=== PATIENT | male | born 1945 | race African-American/Black ===

== ENCOUNTER → 2016-08-04 | Day surgery (SDC) | payer MEDICARE ==
[~2016-08-04] VITALS: Ht 167.6 cm; Wt 86.4 kg
[~2016-08-04] MED LIST: AMIT25TA PO; AMLO10TA2 PO; BUPIVAC MPF-EPI 0.5%-1:200000 30 ML VIAL. ONE; CEFAZOLIN 2GM PREMIX 50 ML IV PRN; CYCL10TA2 PO; DESFLURANE 31 TO 60 MINUTES IH ONE; DEXAMETHASONE SOD PHOS 20 MG/5 ML VIAL. ONE; EPHEDRINE PF IN SALINE 50 MG/5 ML DISP.SYRIN. IV ONE; EPINEPHRINE 1 MG/ML VIAL. ONE; FENTANYL PF 100 MCG/2 ML VIAL. IV PRN; FENTANYL PF 100 MCG/2 ML VIAL. ONE; GLYCOPYRROLATE 1 MG/5 ML VIAL. ONE; HYDR-963 PO; HYDR100T24 PO; HYDROMORPHONE 2 MG/ML VIAL. IV PRN; IV RINGERS,LACTATED 1000ML 1,000 ML IV SCH; LIDOCAINE 1% 1 ML SYRINGE. ID PRN; LIDOCAINE 2% 100 MG/5 ML DISP.SYRIN. ONE; MELO-150 PO; METO50TA2 PO; MORPHINE SULFATE 2 MG/ML DISP.SYRIN. IV PRN; OMEP20TA PO; ONDA4TAB7 PO; ONDANSETRON PF 4 MG/2 ML VIAL. IV PRN; ONDANSETRON PF 4 MG/2 ML VIAL. ONE; OXYC-323 PO; OXYCODONE/APAP 5/325 TABLET. PO ONE; PROCHLORPERAZINE 10 MG/2 ML VIAL. IV PRN; PROPOFOL 20 ML IV ONE; ROCURONIUM 50 MG/5 ML VIAL. ONE; SILD100T PO; SUCCINYLCHOLINE 200 MG/10 ML VIAL. ONE; TAMS0.4C97 PO; TELM40TA PO; TIOT18CA IH; VENTOLIN HFA18 GM INH
--- NOTE | 2016-08-04 13:00 | PDOC ---
BRIEF OPERATIVE NOTE Pre-Op Diagnosis RIH Lap RIH repair with mesh cullen morgan ebl 10 ivf 1100 alyson well to rr stable. #[id number] DANI SOARES MD Aug 04, 2016 13:00
[2016-08-04 13:40] VITALS: BP 129/83
--- NOTE | 2016-08-04 20:13 | OP ---
DATE OF SURGERY: 08/04/2016 PREOPERATIVE DIAGNOSIS: Right inguinal hernia. POSTOPERATIVE DIAGNOSIS: Right inguinal hernia. PROCEDURE: Laparoscopic right inguinal hernia repair with mesh. SURGEON: Dani Soares MD ANESTHESIA: General. ESTIMATED BLOOD LOSS: 10 mL. IV FLUIDS: 1100 mL. INDICATIONS: The patient is a 70-year-old male who presents with a symptomatic right inguinal hernia that he would like to have repaired. FINDINGS: Indirect right inguinal hernia. DESCRIPTION OF PROCEDURE: After informed consent was obtained, the patient was taken to the operating room and placed in supine position. After adequate induction of general anesthesia, he was prepped and draped in usual sterile fashion. An umbilical skin incision was made with a scalpel, subcutaneous tissues with a hemostat. [facility] was used to grab the fascia and lift it anteriorly. Veress was used to gain access to the peritoneal cavity. Low opening pressures confirmed intraperitoneal placement of Veress. Pneumoperitoneum to 15 mmHg was established followed by placement of an 11 mm port. A 5 mm 30 degree lens was inserted, which revealed good port placement. No evidence of entry trauma. He was placed head down. Two additional ports were placed under direct vision, both were 5 mm ports placed on either side of the umbilicus under direct vision. The sites were injected with local anesthetic before making the incision. Also a nerve block was performed 1 cm inferior, 1 cm medial to the ASIS at the level of the external oblique, and 5 mL of the local was instilled into the space. The peritoneum was then scored from just above the ASIS on the right across to the midline with scissors on cautery. The preperitoneal space was then developed with DeBakey and the hernia sac was reduced. At the completion of dissection, the indirect, direct, and femoral spaces had all been exposed. The peritoneal flap had been skeletonized more proximal on the traumatic cord structures to ensure that the mesh could be placed without rolling of the mesh when the flap was reapproximated. A large piece of 3DMax right-sided mesh was brought onto the field and placed in the preperitoneal space. They covered the direct, indirect, and femoral spaces. It was sutured just above the pubic tubercle and along the rectus muscle medially, along the anterior abdominal wall anteriorly, and then carrying not laterally. This was accomplished with a secure strap. No tacks were placed deep to the iliopubic tract, lateral to the indirect ring, and no tacks were placed along Luis's ligament. At this point, the mesh sat nicely against the abdominal wall and all potential hernia spaces were covered. The mesh did not shift or roll upon reapproximation of the peritoneal flap. The peritoneal flap was then reapproximated with a secure strap. At the completion of reapproximation, there were no gaps or defects in the peritoneum. The mesh was completely covered and the indirect hernia sac was also tacked to the anterior abdominal wall, so would not serve as a lead point for recurrence. At this point, the fascial closure device was used to close the fascia at the umbilical incision using 0 Vicryl suture x 2. Ports removed under direct vision, it was hemostatic. Pneumoperitoneum was desufflated. Skin incisions were closed with 4-0 Monocryl in subcuticular fashion. Sterile dressings were placed. He tolerated the procedure well. There were no apparent complications. He was then transferred in stable condition to the recovery room. DANI SOARES MD DR: MORRIS/ev JOB#: [id number] / [id number] SADI Hadley TERRY MD
== END | disposition home or self-care (01) ==
LOC: SURG 08:50
PROVIDERS: ATTEND Surgery
DX: K40.90 Unilateral inguinal hernia, without obstruction or gangrene, not specified as recurrent (principal); I10 Essential (primary) hypertension; J44.9 Chronic obstructive pulmonary disease, unspecified; E66.9 Obesity, unspecified; K21.9 Gastro-esophageal reflux disease without esophagitis; F17.200 Nicotine dependence, unspecified, uncomplicated; Z86.73 Personal history of transient ischemic attack (TIA), and cerebral infarction without residual deficits; Z96.643 Presence of artificial hip joint, bilateral
CPT/HCPCS: 49650; C1781; J0171; J0330; J0690; J1100; J2405; J2704; J3010; J3490

== ENCOUNTER → 2017-08-15 | Outpatient (CLI) | payer BC | END | disposition home or self-care (01) | LOC: KCIC 11:04 | DX: J44.9 Chronic obstructive pulmonary disease, unspecified (principal) | CPT/HCPCS: 71046 ==

== ENCOUNTER → 2019-07-25 | Outpatient (CLI) | payer BC ==
[2016-08-04 13:40] VITALS: BP 129/83
[~2019-07-25] MED LIST changes: -AMLO10TA2 PO; +AMLO10TA8 PO; -BUPIVAC MPF-EPI 0.5%-1:200000 30 ML VIAL. ONE; -CEFAZOLIN 2GM PREMIX 50 ML IV PRN; -DESFLURANE 31 TO 60 MINUTES IH ONE; -DEXAMETHASONE SOD PHOS 20 MG/5 ML VIAL. ONE; -EPHEDRINE PF IN SALINE 50 MG/5 ML DISP.SYRIN. IV ONE; -EPINEPHRINE 1 MG/ML VIAL. ONE; -FENTANYL PF 100 MCG/2 ML VIAL. IV PRN; -FENTANYL PF 100 MCG/2 ML VIAL. ONE; -GLYCOPYRROLATE 1 MG/5 ML VIAL. ONE; +HYDR-3135 PO; -HYDR-963 PO; -HYDROMORPHONE 2 MG/ML VIAL. IV PRN; -IV RINGERS,LACTATED 1000ML 1,000 ML IV SCH; -LIDOCAINE 1% 1 ML SYRINGE. ID PRN; -LIDOCAINE 2% 100 MG/5 ML DISP.SYRIN. ONE; -MELO-150 PO; +MELO15TA23 PO; -METO50TA2 PO; +METO50TA6 PO; -MORPHINE SULFATE 2 MG/ML DISP.SYRIN. IV PRN; -OMEP20TA PO; +OMEP20TA8 PO; -ONDANSETRON PF 4 MG/2 ML VIAL. IV PRN; -ONDANSETRON PF 4 MG/2 ML VIAL. ONE; -OXYC-323 PO; +OXYC1TAB15 PO; -OXYCODONE/APAP 5/325 TABLET. PO ONE; -PROCHLORPERAZINE 10 MG/2 ML VIAL. IV PRN; -PROPOFOL 20 ML IV ONE; -ROCURONIUM 50 MG/5 ML VIAL. ONE; -SUCCINYLCHOLINE 200 MG/10 ML VIAL. ONE
--- NOTE | 2019-07-25 08:49 | KCIC ---
LUMBAR SPINE MIN 4V History: Low back pain, bilateral hip pain, leg weakness Comparison: None. Findings: 5 views of the lumbar spine are submitted. There is zcuu-pb-[id number] levoscoliosis centered near L1. There is mild left lateral subluxation L1 relative to L2 and L2 relative to L3. There is multilevel advanced degenerative disc disease throughout the lumbar spine, also spondylosis throughout the lumbar spine. There is very mild grade 1 anterior spondylolisthesis at L4-5, very minimal posterior subluxation of L2 relative to L3. Lumbar vertebral body stature is overall maintained. There is multilevel lumbar facet degenerative change. There are bilateral hip arthroplasties. There is atherosclerotic calcification of the abdominal aorta. There is more prominent retained stool of the right colon. Impression: 1. There is advanced degenerative disease throughout the lumbar spine, also spondylosis. There is multilevel lumbar facet degenerative change. There is lumbar levoscoliosis, also mild abnormal alignment as stated. Electronically signed by: Roscoe Cherry MD (07/25/2019 8:46 AM) [id number]
== END | disposition home or self-care (01) ==
LOC: KCIC 08:10
PROVIDERS: ATTEND Family Medicine
DX: M47.816 Spondylosis without myelopathy or radiculopathy, lumbar region (principal); M41.86 Other forms of scoliosis, lumbar region; M51.36 Other intervertebral disc degeneration, lumbar region; M43.16 Spondylolisthesis, lumbar region; M43.5X6 Other recurrent vertebral dislocation, lumbar region; I70.0 Atherosclerosis of aorta
CPT/HCPCS: 72110

== ENCOUNTER → 2019-08-14 | Outpatient (CLI) | payer BC ==
[2016-08-04 13:40] VITALS: BP 129/83
--- NOTE | 2019-08-14 12:10 | KCIC ---
MRI Lumbar Spine without contrast History: Low back pain, bilateral hip pain, worsening pain, bilateral leg weakness Technique: Multiplanar, multi sequential noncontrast MR imaging was performed of the lumbar spine. Comparison: None Findings: Lumbar vertebral body stature is mostly maintained other than multilevel small Schmorl's nodes. There is advanced degenerative disc disease L1-L2 through L5-S1, variable multilevel degenerative endplate change throughout the lumbar spine. There is also variable endplate edema throughout lumbar spine greatest at L3-4, no fluid in signal intensity in the intervertebral disc spaces. Conus terminates near T12-L1. There is negligible anterior spondylolisthesis at L4-5. There is mild levoscoliosis centered near L1-2. There is T2 hyperintense lesion of the visualized right kidney on the order of 3.4 cm, some other smaller foci of the bilateral kidneys. L1-L2: There is broad posterior disc osteophyte complex and shallow bulge. There is prominence of posterior epidural fat centrally, mild buckling of the ligamentum flavum, and qteu-qf-npagianq facet degenerative change. There is overall mild narrowing of the far right lateral recess, mild attenuation of the thecal sac centrally in part from posterior epidural lipomatosis. Left neural foramen is adequate. There is fairly severe narrowing of the right neural foramen by facet and disc osteophyte complex with degree of contact of the exiting right L1 nerve root. L2-L3: There is broad posterior disc osteophyte complex and prominence of posterior epidural fat centrally. There is jlay-yf-stnbqauv buckling of the ligamentum flavum greater on the right, also moderate facet hypertrophic change greater on the right. There is overall moderate spinal stenosis, including narrowing of the lateral recesses bilaterally left greater than right. There is degree of attenuation of the thecal sac centrally from posterior epidural lipomatosis. There is moderate narrowing of the left neural foramen by disc osteophyte complex and facet, moderate to severe narrowing on the right. L3-L4: There is broad posterior disc osteophyte complex and minimal bulge. There is prominence of posterior epidural fat centrally. There is mild to moderate buckling of the ligamentum flavum and facet degenerative change somewhat greater on the left. Combination of findings results in overall moderate spinal stenosis with limited preserved subarachnoid space, attenuation of the thecal sac more centrally from posterior epidural lipomatosis. There is moderate to severe neural foramina compromise bilaterally somewhat greater on the left, narrowing from facets and disc osteophyte complex with degree of contact of the exiting L3 nerve roots bilaterally. L4-L5: There is fairly severe left facet degenerative change, to lesser degree on the right. There is moderate buckling of the ligamentum flavum. There is minimal disc osteophyte complex and bulge. There is moderate narrowing of the far left lateral recess. There is also moderate attenuation of the thecal sac more centrally primarily from posterior epidural lipomatosis, also attenuation of the thecal sac from epidural lipomatosis such as at the mid aspect of L4. There is severe narrowing of the left neural foramen from facet and disc osteophyte complex with impingement of the exiting left L4 nerve root, disc osteophyte complex also contacting the proximal extraforaminal left L4 nerve root. There is ujgw-vc-fcwddojr overall narrowing the right neural foramen with disc osteophyte complex near undersurface exiting right L4 nerve root. L5-S1: There is prominence of posterior epidural fat greatest centrally. There is mild buckling of the ligamentum flavum and mild to moderate facet degenerative change. There is disc osteophyte complex and bulge/broad protrusion with contact of the descending S1 nerve roots bilaterally. At the intervertebral disc space level, there is some preserved subarachnoid space. There is moderate, left greater than right lateral recess stenosis. There is fzfg-dc-hpbdxvzw narrowing of the thecal sac more centrally in part from posterior epidural lipomatosis. There is moderate to severe narrowing of the left neural foramen in part from facet and disc osteophyte complex, contact of the exiting left L5 nerve root by the disc osteophyte complex extending to the extraforaminal region. There is moderate to severe narrowing of the right neural foramen with contact of the undersurface exiting right L5 nerve root by disc osteophyte complex extending to the extraforaminal region. At the level of the mid aspect of L5, there is circumferential epidural lipomatosis resulting in near complete effacement of subarachnoid space. Impression: 1. There is multilevel advanced degenerative disc disease throughout lumbar spine, also multilevel spondylosis throughout lumbar spine. There is multilevel degenerative endplate change and endplate edema. 2. There is multilevel spinal stenosis as described throughout the lumbar spine, degree of attenuation of the thecal sac in part from epidural lipomatosis. There is overall moderate spinal stenosis at L2-3, L3-4, L4-5 and also moderate lateral recess stenosis at L5-S1. There is mild attenuation of the thecal sac at L1-2. 3. There is multilevel lumbar neural foramina compromise, more significant narrowing on the right at L1-L2 and L2-3, bilaterally at L3-4 and L5-S1, and on the left at L4-5, somewhat lesser degree of narrowing at other levels as described. 4. Not fully evaluated, T2 hyperintense foci of the visualized bilateral kidneys are statistically more likely cysts. Electronically signed by: Roscoe Cherry MD (08/14/2019 12:07 PM) [id number]
== END | disposition home or self-care (01) ==
LOC: KCIC MRI 10:45
PROVIDERS: ATTEND Family Medicine
DX: M47.816 Spondylosis without myelopathy or radiculopathy, lumbar region (principal); M51.36 Other intervertebral disc degeneration, lumbar region; M51.46 Schmorl's nodes, lumbar region; M43.16 Spondylolisthesis, lumbar region; M25.78 Osteophyte, vertebrae; M48.061 Spinal stenosis, lumbar region without neurogenic claudication; E88.2 Lipomatosis, not elsewhere classified
CPT/HCPCS: 72148

== ENCOUNTER → 2019-09-03 | Outpatient (CLI) | payer BC ==
[2016-08-04 13:40] VITALS: BP 129/83
--- NOTE | 2019-09-03 16:07 | KCIC ---
Exam: Ultrasound renal Indication: Renal mass on MRI Technique: Real-time grayscale and color Doppler images of the kidneys were obtained by the department nurse outreach case manager. Comparisons: None FINDINGS: Right kidney measures 10.4 cm in length. No hydronephrosis. With Within the right kidney there are 2 simple cysts measuring 3.3 cm and 3.1 cm at the upper pole. Left kidney measures 11.3 cm in length. No hydronephrosis. Bladder is distended and appears thin-walled. IMPRESSION: 1. Several simple cysts are noted within the upper pole of the right kidney. 2. The other visualized cystic lesions within the kidneys seen on are below the threshold of visualization on ultrasound. Consider further evaluation with nonemergent renal protocol CT or MRI Electronically signed by: Anna Stephenson MD (09/03/2019 4:04 PM) [id number]
== END | disposition home or self-care (01) ==
LOC: KCIC US 15:22
PROVIDERS: ATTEND Family Medicine
DX: N28.1 Cyst of kidney, acquired (principal); N32.89 Other specified disorders of bladder; N28.89 Other specified disorders of kidney and ureter
CPT/HCPCS: 76770

== ENCOUNTER → 2019-09-10 | Outpatient (CLI) | payer BC ==
[2016-08-04 13:40] VITALS: BP 129/83
[~2019-09-10] MED LIST changes: +IOHEXOL 180 MG/ML 10 ML VIAL. ONE; +methylPREDNISolone ACETATE 40 MG/ML VIAL. ONE; +methylPREDNISolone ACETATE 80 MG/ML VIAL. ONE
--- NOTE | 2019-09-10 11:20 | PAIN ---
DATE OF SERVICE: 09/10/2019 INITIAL CONSULTATION FOR PAIN CLINIC CHIEF COMPLAINT: Low back and right greater than left lower extremity pain. HISTORY OF PRESENT ILLNESS: This is a 73-year-old male who presents with history of pain for about 12 years, but worse over the past 1 year. The patient reports he had a very active last summer and fall, did a lot of yard work, a lot of gardening, a lot of time on his feet and he has had some significant pain over the winter and it is becoming much more hard to control. Even if he can stretch and put some heat on it, it tends to get better, but it is not getting any better here over the past several months. The patient reports pain in low back, bilateral lower extremities, mostly in the posterior gluteus, posterior thighs, greater on the right than the left, but present bilaterally and some weakness on the right leg with activity, but no overt motor loss. The patient reports he feels like he is sitting on a ball with his right gluteus when the pain is at its worst. The patient reports the pain becoming more constant, it changes during the day with activity, worse with walking, standing and changing positions, better with sitting and lying down. It does not awaken him from sleep at night, generally does not affect his bowel or bladder control. He is using a cane at times, but he does not have it with him today. The patient has had previous epidural injections about 12 years ago, which did very well. He has also had some therapy in the past and doing some stretching and exercises currently on his own and trying to walk daily, but it is becoming more difficult. The patient describes the pain as aching and cold in the back and the legs, radiating to posterior gluteus and thigh, again worse on the right side. The patient rates his disability rating from 0-10, 10 being the worst, is an 8 with family home responsibilities and occupation, 9 with recreation and social activity, 7 with sexual behavior, 3 with self-care, and 5 with life support activities. The patient did have MRI scan of the lumbar spine, which shows multilevel degenerative changes and multilevel spondylosis, multilevel spinal stenosis throughout the lumbar spine, spinal stenosis greatest at L2-3, L3-4, L4-5 also moderate lateral recess stenosis at L5-S1, multiple level neural foraminal compromise, more significant on the right L1-2 and L2-3, bilateral L3-4 and L5-S1 and on the left at L4-5. PAST MEDICAL HISTORY: Significant for hypertension, shortness of breath, COPD, hearing loss, arthritis, and gastroesophageal reflux. PREVIOUS SURGERY: Includes bilateral total hip replacements and right inguinal hernia repair. CURRENT MEDICATIONS: Include omeprazole, amlodipine, Micardis, meloxicam, hydralazine, and metoprolol. ALLERGIES: THE PATIENT IS ALLERGIC TO ASPIRIN. FAMILY HISTORY: Significant for no major medical problems or conditions that he is aware of. SOCIAL HISTORY: The patient does not drink alcohol, does not smoke. He is not using illegal, illicit, or recreational drugs. He is and lives with his spouse, lives locally in [place], [place], and reports he is currently retired. REVIEW OF SYSTEMS: The patient's review of systems is positive for those items mentioned in history of present illness. All systems reviewed and otherwise negative. It is complete, full and well documented on the patient's chart. PHYSICAL EXAMINATION: VITAL SIGNS: The patient's blood pressure is 152/96, pulse 71, respirations 16, temperature 98.2 degrees Fahrenheit, height is 5 feet 6 inches, and weight is 211 pounds. GENERAL: The patient is awake, alert, oriented, appropriate, very pleasant demeanor. HEENT: Shows normocephalic, atraumatic. Extraocular movements are intact and symmetrical. Oral cavity: Mucous membranes moist and pink. Dentition is intact. NECK: Shows anterior throat supple without palpable lymphadenopathy noted. Swallow reflex symmetrical. CHEST: Shows normal on inspection. Breath sounds are clear bilaterally. HEART: Shows S1, S2 clear. No murmurs auscultated. ABDOMEN: Soft, nontender, nondistended. No palpable organomegaly is noted. There is no rebound or guarding demonstrated. BACK: Shows spine grossly in the midline. Slight exaggeration of thoracic kyphosis and minor flattening of lumbar lordotic curvature. Lumbar paraspinous muscle shows symmetrical with inspection, with palpation shows some mild tenderness in the inferior aspect of the lumbar paraspinous musculature bilaterally, but only diffusely without significant radiation. The patient shows no tenderness over the spinous processes, sacrum, or sacroiliac regions with direct palpation. EXTREMITIES: Lower extremities show deep tendon reflexes at 1+ in the patellar and tendo calcaneus tendons are equal. Motor exam is approximately 4 on a scale of 5 on the right and 5/5 on the left with dorsiflexion, extension, quadriceps, and hamstring flexion with significant pain with resistance on the right side with hip flexion. Straight leg raise noted to be positive on the right about 40-45 degrees, decreased with knee flexion, again left side is negative. Gaenslen's and Thompson maneuvers are grossly negative. The patient has some limited external rotation secondary to previous hip surgery. The patient is able to stand, stand on his toes without significant difficulty, walks with a significant antalgic gait, however, does appear to favor his right lower extremity fairly significantly. He is walking with a significant limp without using a cane today, but again he does have one which he uses from time to time. The patient's skin shows warm and dry, good turgor. No edema. No sores, rashes, or bruising. IMPRESSION: 1. This is a 73-year-old male with long history of 12 years of low back and right lower extremity pain greater than left, worse over the past year or so. 2. MRI scan of the lumbar spine as noted. 3. Arthritis. 4. Hypertension. 5. Hearing loss. 6. Chronic obstructive pulmonary disease. PLAN: Options were discussed with the patient including conservative medical managements, physical therapies, and interventional techniques. He would like to pursue interventional techniques. We discussed a lumbar epidural steroid injection using description as well as anatomical models to describe the procedure. Risks were then discussed including, but not limited to bleeding, infection, possibility of epidural hematoma, subsequent neurological compromise, dural puncture, headaches, spinal cord and/or nerve damage, side effects of steroid medication and poor results regarding pain control. The patient understands and wished to proceed. The patient will return to clinic in approximately 2 weeks for followup. He was counseled on return appointment, activity level, and side effects to be aware of. DIAGNOSES: Lumbar radiculopathy with lumbar degenerative disk disease and lumbar spinal stenosis. PROCEDURE: Lumbar epidural steroid injection, translaminar approach at the L5-S1 level using C-arm fluoroscopic guidance under sterile prep and drape using local anesthetic. MEDICATIONS INJECTED: Total of 120 mg Depo-Medrol plus 10 mL of preservative-free normal saline and 2 mL of contrast. CONDITION AT DISCHARGE: Stable. The patient tolerated procedure well, had no complications. JESSICA DASH MD DR: EDITA/ev JOB#: [id number] / [id number] DEMETRIS Rico MD
== END ==
LOC: PNCL 08:42
PROVIDERS: ATTEND Anesthesiology
DX: M51.16 Intervertebral disc disorders with radiculopathy, lumbar region (principal); M48.061 Spinal stenosis, lumbar region without neurogenic claudication; I10 Essential (primary) hypertension; J44.9 Chronic obstructive pulmonary disease, unspecified; K21.9 Gastro-esophageal reflux disease without esophagitis; Z96.643 Presence of artificial hip joint, bilateral; Z87.39 Personal history of other diseases of the musculoskeletal system and connective tissue; Z98.890 Other specified postprocedural states; Z79.82 Long term (current) use of aspirin
CPT/HCPCS: 62323; J1030; J1040; Q9965

== ENCOUNTER → 2019-09-24 | Outpatient (CLI) | payer BC ==
[2016-08-04 13:40] VITALS: BP 129/83
--- NOTE | 2019-09-24 09:30 | PAIN ---
DATE OF SERVICE: 09/24/2019 PROGRESS NOTE FOR PAIN CLINIC DIAGNOSES: Lumbar radiculopathy with lumbar degenerative disk disease, lumbar spinal stenosis. HISTORY OF PRESENT ILLNESS: The patient is a 73-year-old male who returns for followup status post lumbar epidural steroid injection x 1. The patient reports about 40% improvement overall in the low back and right lower extremity pain. The patient reports pain across the low back and into the lower extremities. Some minor pain in the left leg now, but much better. The patient is increasing his activity with greater distance walking, doing household activities with greater ease and comfort, traveling with greater ease. The patient reports he is sleeping better, it does not awaken him from sleep at night. The patient reports his pain as 6 on a scale of 10 at its worst over the past week, 5 on average, 5 at its least and is a 5 today. The patient describes this as a tingling and aching, tight across the low back and into the lower extremities, again more on the right than the left, but it is some on the left as well. The patient reports no new motor or sensory deficits, no new bowel or bladder incontinence or other complaints. PHYSICAL EXAMINATION: VITAL SIGNS: The patient's blood pressure 176/114, pulse 67, respirations 16, temperature 98.2 degrees Fahrenheit, weight is 211 pounds. GENERAL: The patient is awake, alert, oriented, appropriate, very pleasant demeanor. HEENT: Exam shows normocephalic, atraumatic. Extraocular movements are intact and symmetrical. Oral cavity shows mucous membranes moist and pink. Dentition is intact. NECK: Shows anterior throat supple without palpable lymphadenopathy noted. Swallow reflex symmetrical. CHEST: Shows normal on inspection. Breath sounds are clear bilaterally. HEART: Shows S1, S2 clear. ABDOMEN: Obese but soft, nontender, nondistended. No palpable organomegaly is noted. BACK: Shows spine grossly in the midline, slight exaggerated thoracic kyphosis, some minor flattening of lumbar lordotic curvature. Lumbar paraspinous muscle shows symmetrical on inspection, with palpation shows some very mild tenderness in the lower lumbar distribution only bilaterally, but appears symmetrical, no evidence of atrophy, hypertrophy, no trigger points. The patient shows full rotational motion of lumbar spine, both laterally as well as extension and flexion without significant difficulty or pain reported. EXTREMITIES: Lower extremities show deep tendon reflexes 1+ in the patellar and tendo calcaneus tendons. Motor exam is strong approximately 4 on a scale of 5 on the right with dorsiflexion, extension, and 5/5 on the left. Peripheral pulses are 1+ posterior tibia. No peripheral edema is noted bilaterally. Options were discussed with the patient. The patient's old chart was reviewed as his current medication regimen updated. Current review of systems updated today as well. We will proceed with a second in a series of lumbar epidural steroid injection today with fluoroscopic guidance. Risks were again discussed including, but not limited to bleeding, infection, possibility of epidural hematoma, subsequent neurological compromise, dural puncture, headaches, spinal cord and/or nerve damage, side effects of steroid medication and poor results regarding pain control. The patient understands and wished to proceed. The patient will return to clinic in approximately 2 weeks for followup, was counseled on return appointment, activity level and side effects to be aware of. DIAGNOSES: Lumbar radiculopathy with lumbar degenerative disk disease and lumbar spinal stenosis. PROCEDURE: Lumbar epidural steroid injection, translaminar approach at L5-S1 level using C-arm fluoroscopic guidance under sterile prep and drape using local anesthetic. MEDICATION INJECTED: A total of 120 mg Depo-Medrol plus 10 mL of preservative-free normal saline and 2 mL of contrast. CONDITION AT DISCHARGE: Stable. The patient tolerated the procedure well, had no complications. JESSICA DASH MD DR: EDITA/ev JOB#: [id number] / [id number]
== END ==
LOC: PNCL 08:32
PROVIDERS: ATTEND Anesthesiology
DX: M51.16 Intervertebral disc disorders with radiculopathy, lumbar region (principal); M48.061 Spinal stenosis, lumbar region without neurogenic claudication
CPT/HCPCS: 62323; J1030; J1040; Q9965

== ENCOUNTER → 2019-10-08 | Outpatient (CLI) | payer BC ==
[2016-08-04 13:40] VITALS: BP 129/83
--- NOTE | 2019-10-08 10:26 | PAIN ---
DATE OF SERVICE: 10/08/2019 PROGRESS NOTE FOR PAIN CLINIC DIAGNOSES: Lumbar radiculopathy with lumbar degenerative disk disease, lumbar spinal stenosis. HISTORY OF PRESENT ILLNESS: This is a 73-year-old male who returns for followup status post lumbar epidural steroid injection x 2. The patient reports about 60% improvement overall. His right leg is doing much better, about 80% improvement with left leg he beginning to develop some pain in the left groin as well as in the posterior gluteus as well as the low back. The patient reports the pain on his left side is much more noticeable now as his right leg is doing much better. The patient was increasing his activity with greater ease and comfort, walking greater distances, doing household activities, traveling with greater ease and comfort. The patient reports it awakens him from sleep occasionally, but not generally from the pain in the back. The patient reports he sleeps about 4 hours at a time on most nights, but without disturbance from the pain. The patient rates his pain as 6 on a scale of 10 at its worst over the past week, 4 on average, 3 at its least and is a 3 today. The patient reported aching and dull, shooting, sharp at times in the left groin. Right leg is doing much better; however, the patient reports no new motor or sensory deficits, no new bowel or bladder incontinence or other complaints. PHYSICAL EXAMINATION: VITAL SIGNS: The patient's blood pressure 149/105, pulse 81, respirations are 16, temperature is 97.6 degrees Fahrenheit, height is 5 feet 6 inches, weight is 212 pounds. GENERAL: The patient is awake, alert, oriented, appropriate, very pleasant demeanor. HEENT: Head shows normocephalic, atraumatic. Extraocular movements are intact and symmetrical. Oral cavity: Mucous membranes moist and pink. Dentition is intact. NECK: Shows anterior throat supple without palpable lymphadenopathy noted. Swallow reflex symmetrical. CHEST: Shows normal on inspection. Breath sounds are clear bilaterally. HEART: Shows S1, S2 clear. No murmurs auscultated. ABDOMEN: Soft, nontender, nondistended. BACK: Shows spine grossly in the midline. Slight exaggeration of thoracic kyphosis and minor flattening of lumbar lordotic curvature. Lumbar paraspinous muscle shows symmetrical on inspection, on palpation shows some moderate tenderness diffusely bilaterally going diffusely without significant radiation. The patient has good rotational motion of lumbar spine, both laterally as well as extension and flexion without significant increase in pain, no tenderness over the sacrum, sacroiliac regions or the spinous processes themselves. EXTREMITIES: Lower extremities show deep tendon reflexes 1+ in the patellar and tendo calcaneus tendons. Motor exam is approximately 4 on a scale of 5 on the right, 5/5 on the left, but is intact bilaterally. Peripheral pulses are 1+ posterior tibia. No peripheral edema is noted. The patient does have a mild positive Thompson sign on the left with external rotation of the left hip and lateral displacement. Options were discussed with the patient. The patient's old chart was reviewed as his current medication regimen updated. Current review of systems updated today as well. We will proceed with a third in the series of lumbar epidural steroid injection today with fluoroscopic guidance. Risks were again discussed including, but not limited to bleeding, infection, possibility of epidural hematoma, subsequent neurological compromise, dural puncture, headaches, spinal cord and/or nerve damage, side effects of steroid medication and poor results regarding pain control. The patient understands and wished to proceed. The patient will return to clinic in approximately 2 weeks for followup. He was counseled on return appointment, activity level and side effects to be aware of. DIAGNOSIS: Lumbar radiculopathy with lumbar degenerative disk disease, lumbar spinal stenosis. PROCEDURE: Lumbar epidural steroid injection, translaminar approach at L3-L4 level using C-arm fluoroscopic guidance under sterile prep and drape using local anesthetic. MEDICATION INJECTED: A total of 120 mg Depo-Medrol plus 10 mL of preservative-free normal saline and 2 mL of contrast. CONDITION AT DISCHARGE: Stable. The patient tolerated the procedure well, had no complications. JESSICA DASH MD DR: EDITA/ev JOB#: [id number] / [id number]
== END ==
LOC: PNCL 08:54
PROVIDERS: ATTEND Anesthesiology
DX: M51.16 Intervertebral disc disorders with radiculopathy, lumbar region (principal); M48.061 Spinal stenosis, lumbar region without neurogenic claudication
CPT/HCPCS: 62323; J1030; J1040; Q9965

== ENCOUNTER → 2020-05-12 | Outpatient (CLI) | payer BC ==
[2016-08-04 13:40] VITALS: BP 129/83
[~2020-05-12] MED LIST changes: +AMLO-187 PO; -AMLO10TA8 PO; -IOHEXOL 180 MG/ML 10 ML VIAL. ONE; -methylPREDNISolone ACETATE 40 MG/ML VIAL. ONE; -methylPREDNISolone ACETATE 80 MG/ML VIAL. ONE
--- NOTE | 2020-05-12 10:15 | KCIC ---
EXAM: Low-dose chest CT lung cancer screening without intravenous contrast. HISTORY: Cigarette smoking. Lung cancer screening. TECHNIQUE: Computed tomographic images of the chest were obtained without contrast. Multiplanar reformatting was performed. *One or more of the following individualized dose reduction techniques were utilized for this examination: 1. Automated exposure control. 2. Adjustment of the mA and/or kV according to patient size. 3. Use of iterative reconstruction technique. COMPARISON: None. FINDINGS: The heart is normal in size. The aorta is normal in caliber. There is aortic and coronary artery atherosclerosis. There is calcific lesion of the aortic valve. There is no lymphadenopathy. There is mild gynecomastia. There is no pneumothorax or pleural effusion. There is mild emphysema. There is no infiltrate or suspicious pulmonary nodule. There is a calcified granuloma within the left upper lobe. There is a 4.0 cm simple cyst within the upper pole of the right kidney. There is no suspicious osseous lesion. IMPRESSION: 1. No acute thoracic finding or suspicious pulmonary nodule. 2. 4.0 cm simple cyst within the right kidney. Follow-up is not routinely recommended for simple cysts. 3. Mild emphysema. 4. Lung RADS category 1: Continue annual screening with low dose CT in 12 months. Electronically signed by: Judith Galvan MD (05/12/2020 10:12 AM) [facility]
== END ==
LOC: KCIC CT 09:45
PROVIDERS: ATTEND Family Medicine
DX: Z12.2 Encounter for screening for malignant neoplasm of respiratory organs (principal); N28.1 Cyst of kidney, acquired; J43.9 Emphysema, unspecified; Z87.891 Personal history of nicotine dependence
CPT/HCPCS: G0297

== ENCOUNTER 2021-01-10 20:57 | Emergency (ER) | payer BC ==
[~2021-01-10] VITALS: Ht 165.1 cm; Wt 93.2 kg
[2021-01-10 21:22] LABS: BASO % 0 % (0-3); EOS # 0.1 x10^3/uL (0.0-0.7); EOS % 4 % (0-3); HEMATOCRIT 35.2 % (39.0-53.0); HEMOGLOBIN 11.7 g/dL (13.0-17.5); LYMPH # 0.5 x10^3/uL (1.0-4.8); LYMPH % 13 % (24-48); MEAN CORPUSCULAR HEMOGLOBIN 30 pg (25-35); MEAN CORPUSCULAR HGB CONC 33 g/dL (31-37); MEAN CORPUSCULAR VOLUME 91 fL (79-100); MONO # 0.5 x10^3/uL (0.0-1.1); MONO % 13 % (0-9); NEUT # 2.8 x10^3/uL (1.8-7.7); NEUT % 70 % (31-73); PLATELET COUNT 179 x10^3/uL (140-400); RED BLOOD COUNT 3.86 x10^6/uL (4.30-5.70); RED CELL DISTRIBUTION WIDTH 13.9 % (11.5-14.5)
[2021-01-10 21:31] LABS: CALCIUM 9.8 mg/dL (8.5-10.1); CREATININE 1.6 mg/dL (0.7-1.3); GFR 51.2; POTASSIUM 3.9 mmol/L (3.5-5.1)
[2021-01-10 21:37] LABS: ALBUMIN 3.8 g/dL (3.4-5.0); ALBUMIN/GLOBULIN RATIO 1.2 (1.0-1.7); TOTAL BILIRUBIN 0.3 mg/dL (0.2-1.0)
[2021-01-10 22:03] VITALS: BP 134/87
--- NOTE | 2021-01-10 22:15 | PHYS DOC ---
Past Medical History Past Medical History: COPD, Hypertension Additional Past Medical Histor: Emphysema, PROSTATE CANCER Past Surgical History: Hip Replacement, Other Additional Past Surgical Histo: RADIATION Smoking Status: Former Smoker Alcohol Use: None Drug Use: None General Adult EDM: Chief Complaint: RECTAL BLEED HPI: HPI: Patient is a 75 year old male with history of prostate cancer s/p radiation therapy x5 recently at the [place] who presents with small amounts of bright red blood per rectum over the past 3 days. He has not had much in the way of solid bowel movements over this timeframe. When he has the urge to have a bowel movement he does have some lower abdominal discomfort/cramping. He has not had a large amount of rectal bleeding. No melena. No upper abdominal pain. He is not on blood thinners. Not on antiplatelet medications. No history of similar. States that with the radiation therapy he did have something inserted into his rectum which was uncomfortable. Nonalcoholic or have any liver disease. No fevers or chills. No nausea/vomiting. Otherwise feeling well Review of Systems: Review of Systems: Constitutional: Denies fever or chills. [] Eyes: Denies change in visual acuity. [] HENT: Denies nasal congestion or sore throat. [] Respiratory: Denies cough or shortness of breath. [] Cardiovascular: Denies chest pain or edema. [] GI: + Rectal bleeding. Denies abdominal pain, nausea, vomitinG. [] : Denies dysuria. [] Musculoskeletal: Denies back pain or joint pain. [] Integument: Denies rash. [] Neurologic: Denies headache, focal weakness or sensory changes. [] Endocrine: Denies polyuria or polydipsia. [] Lymphatic: Denies swollen glands. [] Psychiatric: Denies depression or anxiety. [] Heart Score: C/O Chest Pain: No Risk Factors: Risk Factors: DM, Current or recent (<one month) smoker, HTN, HLP, family history of CAD, obesity. Risk Scores: Score 0 - 3: 2.5% MACE over next 6 weeks - Discharge Home Score 4 - 6: 20.3% MACE over next 6 weeks - Admit for Clinical Observation Score 7 - 10: 72.7% MACE over next 6 weeks - Early Invasive Strategies Family History: Family History: No pertinent family history Allergies: Allergies: Allergies Coded Allergies Type Severity Reaction Last Updated Verified aspirin Allergy Severe ANAPHYLAXIS 11/28/20 No Physical Exam: PE: Constitutional: Well developed, well nourished, no acute distress, non-toxic appearance. [] HENT: Normocephalic, atraumatic, bilateral external ears normal, oropharynx moist, no oral exudates, nose normal. [] Eyes: PERRLA, EOMI, conjunctiva normal, no discharge. [] Neck: Normal range of motion, no tenderness, supple, no stridor. [] Cardiovascular:Heart rate regular rhythm, no murmur [] Lungs & Thorax: Bilateral breath sounds clear to auscultation [] Abdomen: Bowel sounds normal, soft, no tenderness, no masses, no pulsatile masses. Normal appearance to the rectum externally. No hemorrhoids or fissure. No return of blood on YANI. [] Skin: Warm, dry, no erythema, no rash. [] Back: No tenderness, no CVA tenderness. Sacral ulcer is present. No surrounding erythema or purulent drainage. [] Extremities: No tenderness, no cyanosis, no clubbing, ROM intact, no edema. [] Neurologic: Alert and oriented X 3, normal motor function, normal sensory fu nction, no focal deficits noted. [] Psychologic: Affect normal, judgement normal, mood normal. [] Current Patient Data: Labs: Laboratory Tests Test 01/10/21 21:15 White Blood Count 4.0 x10^3/uL (4.0-11.0) Red Blood Count 3.86 x10^6/uL (4.30-5.70) L Hemoglobin 11.7 g/dL (13.0-17.5) L Hematocrit 35.2 % (39.0-53.0) L Mean Corpuscular Volume 91 fL (79-100) Mean Corpuscular Hemoglobin 30 pg (25-35) Mean Corpuscular Hemoglobin Concent 33 g/dL (31-37) Red Cell Distribution Width 13.9 % (11.5-14.5) Platelet Count 179 x10^3/uL (140-400) Neutrophils (%) (Auto) 70 % (31-73) Lymphocytes (%) (Auto) 13 % (24-48) L Monocytes (%) (Auto) 13 % (0-9) H Eosinophils (%) (Auto) 4 % (0-3) H Basophils (%) (Auto) 0 % (0-3) Neutrophils # (Auto) 2.8 x10^3/uL (1.8-7.7) Lymphocytes # (Auto) 0.5 x10^3/uL (1.0-4.8) L Monocytes # (Auto) 0.5 x10^3/uL (0.0-1.1) Eosinophils # (Auto) 0.1 x10^3/uL (0.0-0.7) Basophils # (Auto) 0.0 x10^3/uL (0.0-0.2) Sodium Level 140 mmol/L (136-145) Potassium Level 3.9 mmol/L (3.5-5.1) Chloride Level 104 mmol/L (98-107) Carbon Dioxide Level 25 mmol/L (21-32) Anion Gap 11 (6-14) Blood Urea Nitrogen 19 mg/dL (8-26) Creatinine 1.6 mg/dL (0.7-1.3) H Estimated GFR (Cockcroft-Gault) 51.2 BUN/Creatinine Ratio 12 (6-20) Glucose Level 118 mg/dL (70-99) H Calcium Level 9.8 mg/dL (8.5-10.1) Total Bilirubin 0.3 mg/dL (0.2-1.0) Aspartate Amino Transferase (AST) 16 U/L (15-37) Alanine Aminotransferase (ALT) 28 U/L (16-63) Alkaline Phosphatase 87 U/L (46-116) Total Protein 7.0 g/dL (6.4-8.2) Albumin 3.8 g/dL (3.4-5.0) Albumin/Globulin Ratio 1.2 (1.0-1.7) Laboratory Tests 01/10/21 21:15 Laboratory Tests 01/10/21 21:15 Vital Signs: Vital Signs Date Time Temp Pulse Resp B/P (MAP) Pulse Ox O2 Delivery O2 Flow Rate FiO2 01/10/21 21:05 98.9 95 13 160/101 (93) 100 Room Air 98.9 EKG: EKG: [] Radiology/Procedures: Radiology/Procedures: [] Course & Med Decision Making: Course & Med Decision Making Pertinent Labs and Imaging studies reviewed. (See chart for details) Patient 75-year-old male with past medical history of prostate cancer s/p 5 r ounds of radiation therapy recently who presents with small amounts of rectal bleeding. Vitally stable on arrival. Not anticoagulated or on any antiplatelets. Rectal exam without return of blood. 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 Hemoglobin is stable. Feel he can safely follow-up with his outpatient providers with expectant management. Patient is agreeable with this plan. Return precautions discussed. [id number] Dragon Disclaimer: Draglindsey Disclaimer: This electronic medical record was generated, in whole or in part, using a voice recognition dictation system. Departure Departure Impression: Primary Impression: Rectal bleeding Additional Impression: Radiation proctitis Disposition: HOME / SELF CARE / HOMELESS Condition: STABLE Referrals: DEMETRIS SHARP MD (PCP) Additional Instructions: I think that you were rectal bleeding is likely a result of irritation from your recent radiation. Please follow-up with your radiation specialist, urologist, and primary care do ctor. Your labs were stable. These are typically self-limited and improve over time on their own. However, if you have worsening bleeding, worsening pain, fever/chills, or other new/concerning symptoms please return to the emergency department for reevaluation. FELICIA DU MD Jan 10, 2021 22:15
== END 2021-01-10 22:40 | disposition home or self-care (01) ==
LOC: ER 20:57
DX: K62.7 Radiation proctitis (principal); K62.5 Hemorrhage of anus and rectum; J44.9 Chronic obstructive pulmonary disease, unspecified; I10 Essential (primary) hypertension; Z85.46 Personal history of malignant neoplasm of prostate
CPT/HCPCS: 36415; 80053; 85025; 86850; 86900; 86901; 99283

== ENCOUNTER → 2021-07-20 | Outpatient (CLI) | payer BC ==
[~2021-07-20] MED LIST changes: +CYCL10TA19 PO; -CYCL10TA2 PO
--- NOTE | 2021-07-20 14:58 | KCIC ---
EXAM: Chest, 2 views. HISTORY: Pneumonia. COMPARISON: 11/26/2020 FINDINGS: 2 views of the chest are obtained. There is no infiltrate, pleural effusion or pneumothorax . The heart is normal in size. There is hyperinflation due to inspiratory effort or emphysema. IMPRESSION: No acute pulmonary finding. Electronically signed by: Judith Galvan MD (07/20/2021 2:55 PM) [id number]
== END ==
LOC: KCIC 14:19
PROVIDERS: ATTEND Family Medicine
DX: J98.11 Atelectasis (principal); J18.9 Pneumonia, unspecified organism; R06.02 Shortness of breath; Z87.891 Personal history of nicotine dependence
CPT/HCPCS: 71046

== ENCOUNTER → 2021-09-21 | Outpatient (CLI) | payer BC ==
[~2021-09-21] MED LIST changes: -OMEP20TA8 PO; +OMEP20TA91 PO
--- NOTE | 2021-09-22 10:22 | KCIC ---
EXAM: XR HIP (WITH OR WITHOUT PELVIS) 1 VIEW 09/21/2021 2:30 PM CLINICAL INDICATION: Bilateral hip pain, right greater than left. Arthroplasties. Frequent falls. COMPARISON: None available TECHNIQUE: AP view of the pelvis and frog-leg lateral views of the hips. 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 No periprosthetic fracture or definite loosening . A thin, 1 mm rim of lucency around the distal stem of the left hip prosthesis is likely within norm al limits. There is mild heterotopic ossification at the superolateral aspect of both hips. Vascular calcifications are also noted. There is severe lumbar degenerative disc disease. IMPRESSION: Bilateral hip prosthesis without definite complication. Recommend comparison with prior radiograph, if available, to evaluate for change. Electronically signed by: Gregoria Juarez MD (09/22/2021 10:19 AM) [id number]
== END ==
LOC: KCIC 14:22
PROVIDERS: ATTEND Family Medicine
DX: M51.36 Other intervertebral disc degeneration, lumbar region (principal); M25.851 Other specified joint disorders, right hip; M25.852 Other specified joint disorders, left hip; Z96.643 Presence of artificial hip joint, bilateral
CPT/HCPCS: 73521